=== PATIENT | female | born 1965 | race Caucasian/White ===

== ENCOUNTER → 2016-11-15 | Outpatient (CLI) | payer OTHER | LOC: FIMAGING 10:25 | PROVIDERS: ATTEND Family Medicine | DX: Z12.39 Encounter for other screening for malignant neoplasm of breast (principal); R92.8 Other abnormal and inconclusive findings on diagnostic imaging of breast | CPT/HCPCS: G0202 ==

== ENCOUNTER 2018-07-13 20:21 | Emergency (ER) | payer OTHER ==
[2018-07-13 20:25] VITALS: BP 137/118
--- NOTE | 2018-07-13 20:28 | EDPHY ---
H & P Stated Complaint: hit in head with clippers, lac to head Time Seen by Provider: 07/13/18 20:27 HPI/ROS: Chief Complaint: Minor head injury HPI: The patient presents to the ED with a minor head injury. She was trimming a tree and was hit in the scalp by the clippers. She noticed bleeding in her hair prompting her visit to the emergency department. She denies any significant headache, loss of consciousness, neck pain or additional traumatic complaints. REVIEW OF SYSTEMS: Neuro: no headache, numbness, weakness Musculoskeletal: as above Skin: As above Source: Patient Exam Limitations: No limitations - Personal History LMP (Females 10-55): Irregular Current Tetanus/Diphtheria Vaccine: Yes Current Tetanus Diphtheria and Acellular Pertussis (TDAP): Unsure Tetanus Vaccine Date: 2010 - Medical/Surgical History Hx Asthma: No Hx Chronic Respiratory Disease: No Hx Diabetes: No Hx Cardiac Disease: No Hx Renal Disease: No Hx Cirrhosis: No Hx Alcoholism: No Hx HIV/AIDS: No Hx Splenectomy or Spleen Trauma: No Other PMH: Medical-HTN. Surgical-uterine ablation - Social History Smoking Status: Never smoked - Physical Exam Exam: General Appearance: Alert, no distress Head: Superficial nonsuturable abrasion noted at the vertex of the scalp without significant hematoma Neck: Nontender, trachea midline Neurological: GCS 15 Constitutional: Initial Vital Signs Temperature (C) 36.6 C 07/13/18 20:23 Heart Rate 84 07/13/18 20:23 Respiratory Rate 18 07/13/18 20:23 Blood Pressure 137/118 H 07/13/18 20:23 O2 Sat (%) 96 07/13/18 20:23 O2 Delivery Mode Room Air Allergies/Adverse Reactions: No Known Allergies Allergy (Verified 07/13/18 20:22) Home Medications: Medication Instructions Recorded Progesterone 07/13/18 Medical Decision Making ED Course/Re-evaluation: The patient was reassured she has a superficial scalp abrasion which does not require suturing. She is neurologically intact without evidence of a closed head injury. She will be discharged home with instructions to use Tylenol and ibuprofen as needed for pain. Departure - Departure Disposition: Home, Routine, Self-Care Clinical Impression: Scalp abrasion Qualifiers: Encounter type: initial encounter Qualified Code(s): S00.01XA - Abrasion of scalp, initial encounter Condition: Good Instructions: Abrasion (ED) Additional Instructions: 1. Tylenol and ibuprofen as needed for pain 2. Shower and bathe normally Referrals: Chayito Fung MD [Primary Care Provider] - As per Instructions
== END 2018-07-13 20:40 | disposition home or self-care (01) ==
DX: S00.01XA Abrasion of scalp, initial encounter (principal); W26.8XXA Contact with other sharp object(s), not elsewhere classified, initial encounter; Y92.9 Unspecified place or not applicable; Y93.H2 Activity, gardening and landscaping; Y99.9 Unspecified external cause status